=== PATIENT | female | born 1970 | race Caucasian/White ===

== ENCOUNTER 2016-11-20 12:53 | Emergency (ER) | payer OTHER ==
[2016-11-20 13:02] VITALS: TEMP 98.1
--- NOTE | 2016-11-20 13:07 | EDPHY ---
H & P Stated Complaint: Abd pain, Nausea, sent from for EKG changes HPI/ROS: CHIEF COMPLAINT: Nausea, vomiting, diaphoresis. HISTORY OF PRESENT ILLNESS: The patient is a 46-year-old female sent from Urgent Care with an abnormal EKG. The patient flew in yesterday from [place]. The night before her flight she had nausea and diaphoresis with a mild headache. She attributed her symptoms to migraines and took her migraine medication, Treximet. She felt no improvement after taking the Treximet, which is abnormal for her. She felt fine on her flight. Once arriving she felt slight malaise with a low grade headache. She went back to her hotel and woke up with the same symptoms as the previous night. She proceeded to have multiple episodes of emesis, her last episode of emesis was at 4:30 a.m.. The patient is menopausal and is taking Angeliq. She has experienced similar diaphoretic hot flashes when with menopause. The patient went to urgent care and was found to have prolonged QT intervals on her EKG. She currently feels asymptomatic. She notes slight head heaviness but denies val headache. She is not vomiting now. She denies abdominal pain. She has not had diarrhea. No urinary symptoms. REVIEW OF SYSTEMS: A ten point review of systems was performed and is negative with the exception of the items mentioned in the HPI. Past medical history: Anxiety, Migraines. Past surgical history: Denies. Family history: Father had SD in his 50s, and hypertension. Maternal side has diabetes and breast cancer. Social history: Occasional alcohol use. Nonsmoker. Visiting from [place] with her children. General Appearance: Alert. Vital signs reviewed. Blood pressure 125/77, heart rate 102 at triage. Eyes: Pupils equal and round, no conjunctival injection, no discharge. Anicteric. ENT, Mouth: Mucous membranes are moist, no oropharyngeal erythema or edema. Neck: No lymphadenopathy, supple. Respiratory: Lungs are clear to auscultation; no wheezes, rales, or rhonchi. Cardiovascular: Regular rate and rhythm; no murmur, rub, or gallop. Gastrointestinal: Abdomen is soft and nontender, no masses or organomegaly, bowel sounds normal. Skin: Warm and dry, no rashes on exposed skin, normal color. Back: Nontender to palpation over the thoracolumbar spine. No CVAT. Extremities: No lower extremity edema, no calf tenderness or swelling. Neurological: Alert and oriented. Moving all four extremities easily and equally. Psychiatric: Normal affect. Source: Patient Exam Limitations: No limitations - Personal History LMP (Females 10-55): Post Menopausal Current Tetanus/Diphtheria Vaccine: Yes Current Tetanus Diphtheria and Acellular Pertussis (TDAP): Yes - Medical/Surgical History Hx Asthma: No Hx Chronic Respiratory Disease: No Hx Diabetes: No Hx Cardiac Disease: No Hx Renal Disease: No Hx Cirrhosis: No Hx Alcoholism: No Hx HIV/AIDS: No Hx Splenectomy or Spleen Trauma: No Other PMH: PMH: anxiety, - Social History Smoking Status: Never smoked Constitutional: Initial Vital Signs Temperature (C) 36.7 C 11/20/16 12:56 Heart Rate 102 H 11/20/16 12:56 Respiratory Rate 18 11/20/16 12:56 Blood Pressure 125/77 H 11/20/16 12:56 O2 Sat (%) 100 11/20/16 12:56 O2 Delivery Mode Room Air Allergies/Adverse Reactions: tetracycline Allergy (Verified 11/20/16 13:02) Home Medications: Medication Instructions Recorded Desipramine HCl 11/20/16 Medical Decision Making - Diagnostics EKG Interpretation: The 12 lead EKG was interpreted by myself and in conjunction with Dr. Whatley. See hard copy and/or "tracemaster" electronic copy for interpretation: Borderline prolonged QT interval. ED Course/Re-evaluation: The patient presents from urgent care with an abnormal EKG showing a slightly prolonged QT interval. The patient was seen at urgent care for nausea, vomiting , and diaphoresis that she woke up with two nights in a row. She has a history of migraines and attributed her symptoms to that, however, after taking her migraine medication (Treximet) her symptoms did not improve. The patient is post menopausal, she is taking Angeliq. She states she has experienced similar diaphoretic hot flashes during menopause. The patient is also on a tricyclic antidepressant as well. Plan cardiac work up including BMP and Troponin. She is receiving IV fluids. 1:30 p.m.: I consulted Dr. Whatley, Cardiology. He viewed the patient's EKG and her medication. He reads the EKG as "borderline prolonged QT interval." He notes that the morphology is normal and doubts that this is a congenital problem. This is likely medication induced. The patient is on desipramine and should be weened down from this medication. She can take an vggb-alf-crxsvve magnesium supplement for reassurance, per Dr. Whatley. Her chance of a malignant arrhythmia with a prolonged QT that measures less than 500 is quite low at this time. I relayed all of the above to the patient and she is reassured. She will take an ttnr-pec-pmbchax magnesium supplement. She is receiving 1 L of IV fluids. Labs reviewed. Normal troponin. I do not suspect ACS. She will consult with her primary care physician when she returns to [place] tomorrow. They will discuss weaning her desipramine. She has not had nausea, vomiting, diaphoresis, or headache while in the emergency department. I do not know if her vomiting was related to headache or to a GI problem such as gastritis/gastroenteritis. No signs of infection. She is menopausal, vomiting of early quite unlikely. As she is currently asymptomatic, I do not recommend further workup of these symptoms at this point in time. She was noted to have slight elevation of BP in the ED. She is aware of this and will have it re-checked by PCP. - Data Points Laboratory Results: Laboratory Results 11/20/16 13:05 11/20/16 13:05 Medications Given: Discontinued Medications Sodium Chloride (Ns) 1,000 mls @ 0 mls/hr IV EDNOW ONE; Wide Open PRN Reason: Protocol Stop: 11/20/16 13:22 Last Admin: 11/20/16 13:45 Dose: 1,000 mls Departure - Departure Disposition: Home, Routine, Self-Care Clinical Impression: Prolonged Q-T interval on ECG Condition: Good Instructions: Acute Nausea and Vomiting (ED) Additional Instructions: Your abnormal EKG finding today is likely a cause of the desipramine you are taking. I recommend you wean down from this dose. You should discuss with your prescriber an appropriate weaning regimen. Take an bufn-xtj-vigvbuk magnesium supplementation if you would like. Follow up with your primary care physician when you return home. I am giving you the name of the automobile upholsterer that I spoke with today. If you need cardiology care while in town you have his name as a referral. Referrals: Himanshu Whatley MD [Medical Doctor] - As per Instructions Report Scribed for: Brandi Casper Report Scribed by: Keli Bernal Date of Report: 11/20/16 Time of Report: 13:27 Physician Review and Approval Statement: 11/20/16 13:05 Portions of this note were transcribed by the medical office technology instructor. I, Dr. Brandi Casper, personally performed the history, physical exam, and medical decision- making; and confirmed the accuracy of the information in the transcribed note.
--- NOTE | 2016-11-20 13:08 | CPEKG ---
Heart Rate: 90 RR Interval: 667 P-R Interval: 152 QRSD Interval: 90 QT Interval: 388 QTC Interval: 475 P [place]: 71 QRS [place]: 69 T Wave [place]: 62 EKG Severity - NORMAL ECG - EKG Impression: SINUS RHYTHM EKG Impression: Borderline increased QTc interval Electronically Signed By: Himanshu Whatley 20-Nov-2016 13:42:16
[2016-11-20] MEDS ORDERED: NS 1,000 ML IV ONE (13:21)
[2016-11-20 13:27] LABS: % IMMATURE GRANULYOCYTES 0.4 % (0.0-1.1); ABSOLUTE IMMATURE GRANULOCYTES 0.03 10^3/uL (0.00-0.10); ADD DIFF? NO; ADD MORPH? NO; ADD SCAN? NO; ATYPICAL LYMPHOCYTE FLAG 0 (0-99); FRAGMENT RBC FLAG 0 (0-99); HEMATOCRIT 42.1 % (38.0-47.0); HEMOGLOBIN 13.7 g/dL (12.6-16.3); LEFT SHIFT FLG 0 (0-99); LIPEMIA HEMOLYSIS FLAG 80 (0-99); MEAN CELL HEMOGLOBIN 29.3 pg (27.9-34.1); MEAN CELL HEMOGLOBIN CONCENTR. 32.5 g/dL (32.4-36.7); MEAN CELL VOLUME 90.1 fL (81.5-99.8); MEAN PLATELET VOLUME 9.8 fL (8.7-11.7); PLATELET CLUMPS FLAG 0 (0-99); PLATELET COUNT 303 10^3/uL (150-400); RED BLOOD CELL COUNT 4.67 10^6/uL (4.18-5.33); RED CELL DISTRIBUTION WIDTH 13.3 % (11.5-15.2)
[2016-11-20 13:47] LABS: ANION GAP 13 mEq/L (8-16); CALCIUM 10.1 mg/dL (8.5-10.4); CARBON DIOXIDE 27 mEq/l (22-31); CHLORIDE 102 mEq/L (97-110); CREATININE 0.7 mg/dL (0.6-1.0); GLOMERULAR FILTRATION RATE > 60; GLUCOSE 90 mg/dL (70-100); POTASSIUM 4.2 mEq/L (3.5-5.2); SODIUM 142 mEq/L (134-144)
[2016-11-20 13:58] LABS: TROPONIN I < 0.012 ng/mL (0.000-0.034)
[2016-11-20 15:26] VITALS: BP 138/111; PULSE 82; RESP 16; O2SAT 96
== END 2016-11-20 15:24 | disposition home or self-care (01) ==
DX: I45.81 Long QT syndrome (principal); E86.9 Volume depletion, unspecified